=== PATIENT | female | born 1965 | race Hispanic/Latino ===

== ENCOUNTER 2023-05-13 14:15 | Emergency (ER) | payer OTHER, SELFPAY ==
[2023-05-13] VITALS (23 sets, daily range): BP systolic 88–143; BP diastolic 51–95; PULSE 60–77; RESP 13–26; TEMP 36.4–38.7; O2SAT 94–99; BMI 29.2
--- NOTE | 2023-05-13 15:37 | DI.RAD.S_ITS ---
PROCEDURE: XR CHEST 1V INDICATIONS: suspected sepsis TECHNIQUE: One view of the chest was acquired. COMPARISON: None. FINDINGS: Surgical changes and devices: None. Lungs and pleura: Lungs are clear. No pleural effusions or pneumothorax. Mediastinum: Mediastinal contours appear normal. Heart size is normal. Elevated right hemidiaphragm. Bones and chest wall: No suspicious bony lesions. Overlying soft tissues appear unremarkable. IMPRESSION: No acute cardiopulmonary disease process. Dictated by: Valerie Lynne MD, PhD on 05/13/2023 at 16:00 Approved by: Valerie Lynne MD, PhD on 05/13/2023 at 16:00
[2023-05-13] MEDS: SODIUM CHLORIDE 0.9% 1,000 ML 1000 ML IV (15:45)
[2023-05-13 15:49] LABS: INR 1.1 (0.9-1.3); Prothrombin Time 12.2 SECONDS (10.1-12.7)
[2023-05-13 15:58] LABS: Alanine Aminotransferase 30 IU/L (<35); Albumin 4.3 g/dL (3.5-5.0); Albumin Globulin Ratio 1.2 (1.0-2.8); Alkaline Phosphatase 108 U/L (38-126); Aspartate Aminotransferase 34 IU/L (14-36); BUN Creatinine Ratio 9.8 (6-22); Bilirubin Total 1.2 mg/dL (0.2-1.3); Blood Urea Nitrogen 6 mg/dL (7-17); Calcium 8.8 mg/dL (8.4-10.2); Carbon Dioxide 33 mmol/L (22-32); Estimated Glomerular Filt Rate > 60 mL/min (>60); Globulin 3.6 g/dL (1.7-4.1); Glucose 123 mg/dL (70-100); HEMOLYSIS < 15 (0-50); Lipase 101 U/L (23-300); Total Protein 7.9 g/dL (6.3-8.2)
--- NOTE | 2023-05-13 15:59 | PC.NURSE ---
patient states she sees dark but is not able to see anything but does register light sensation. pupil on the right is reactive but pupil on the left is less reactive. both are equal in size. both are cloudy.
[2023-05-13 16:04] LABS: Add Manual Diff / Slide Review NO; Basophils Absolute Auto 0 /uL (0-100); Basophils Percent Auto 0.4 % (0-2); Eosinophils Absolute Auto 100 /uL (0-450); Hemoglobin 12.8 g/dL (12.0-16.0); Lymphocytes Absolute Auto 2200 /uL (1100-4500); Lymphocytes Percent Auto 23.7 % (25-40); Mean Corpuscular HGB Conc 35.5 % (30-36); Mean Corpuscular Volume 90.2 fL (80-100); Monocytes Absolute Auto 900 /uL (0-900); Neutrophils Absolute Auto 6000 /uL (1500-7000); Neutrophils Percent Auto 64.9 % (50-75); Platelet Count 172 X10^3/uL (150-400); Red Blood Cell Count 3.99 X10^6/uL (4.0-5.2); Red Cell Distribution Width 14.5 % (11.6-14.8); White Blood Cell Count 9.2 X10^3/uL (4.5-11.0)
--- NOTE | 2023-05-13 16:04 | DI.CT.S_ITS ---
PROCEDURE: CT HEAD/BRAIN WO CON INDICATIONS: headache, decreased eyesight over days, reports fever TECHNIQUE: Noncontrast 4.5 mm thick angled axial sections acquired from the foramen magnum to the vertex, with coronal and sagittal reformats. For radiation dose reduction, the following was used: automated exposure control, adjustment of mA and/or kV according to patient size. COMPARISON: [facility], CR, XR CHEST 1V, 05/13/2023, 15:48. FINDINGS: Image quality: Excellent. CSF spaces: Basal cisterns are patent. No extra-axial fluid collections. Ventricles are normal in size and shape. Brain: There is a mass seen involving the sella and suprasellar region that measures 2.9 cm craniocaudal by 2.5 cm AP, with a transverse extent of 2.2 cm. There is mass effect upon the optic chiasm and ventral3 forebrain. High density can be seen within the anterior aspect of this mass, as on series 2, image 11 and on series 4, image 17, which may represent intratumoral hemorrhage. No midline shift. Moseley-white matter interface is normal. Skull and face: Calvarium and visualized facial bones are intact, without suspicious lesions. Sinuses: Visualized sinuses and mastoids are clear. IMPRESSION: There is a 2.9 cm mass involving the pituitary fossa. 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 Mild high density can be seen within the mass, which may represent recent hemorrhage. ENT/neurosurgical consultation is recommended. Please consider a dedicated pituitary protocol brain MRI (without and with contrast) for further evaluation (assuming that there is no contraindication). Note: Case discussed by telephone with Dr. Santiago at 4:15 p.m. [place] time on May 13, 2023. Dictated by: Edilson Adler M.D. on 05/13/2023 at 16:12 Approved by: Edilson Adler M.D. on 05/13/2023 at 16:16
[2023-05-13 16:15] LABS: Procalcitonin 0.16 ng/mL (<0.5)
[2023-05-13] MEDS: MORPHINE 4 MG/ML INJ IV (16:15)
[2023-05-13 16:29] LABS: Sodium 116 mmol/L (137-145)
[2023-05-13 16:30] LABS: Chloride 75 mmol/L (98-107); Potassium 2.7 mmol/L (3.4-5.1)
--- NOTE | 2023-05-13 16:33 | ED.HA ---
HPI - Headache <Angelica Santiago DO - Last Filed: 05/14/23 08:52> General Chief Complaint: Headache Stated Complaint: Head pain, Loss of eyesight Time Seen by Provider: 05/13/23 16:04 Source: patient, family and old records reviewed Mode of arrival: Wheelchair Limitations: no limitations History of Present Illness HPI Narrative: This is a 57-year-old female who comes emergency department with complaint of fevers, severe headache starting on 05/10/2023, neck stiffness has pain and increasingly worsening vision. Patient notes that she did have an ophthalmology appointment as she is had slowly worsening vision changes prior to traveling to [place]. She is being followed at the [facility]. She does have a known history cataracts. Patient under tripped started a develop severe headache 4 days ago which has been persistent the develop fevers 3 days ago. Noticed vision has continued to significantly worsened. Denies chest pain or shortness of breath no cold cough or congestive symptoms she has had nausea and vomiting on the and into the but not since then. No diarrhea constipation, no dysuria, urgency or frequency or incontinence. Patient saw physician in a clinic, had labs had COVID swab which was negative, told her that they were suspicious for dengue fever she did have what appears to be CBC shows leukocytes of 10, neutrophils of 510. Hemoglobin was 14 with hematocrit of 52, platelets are 121 at that time lab was not dated. Patient has a little bit of slurred speech, she has been understandable she is not been confused. Family states she is had difficulty with walking they have been assisting her and using a wheelchair and pivoting her for the toilet. They have not noticed any one-sided weakness or lateralizing changes no facial droop. Related Data Allergies Allergy/AdvReac Type Severity Reaction Status Date / Time No Known Drug Allergies Allergy Verified 05/13/23 15:35 Review of Systems <Angelica Santiago DO - Last Filed: 05/14/23 08:52> Review of Systems ROS Unobtainable: All systems reviewed & are unremarkable except as noted in HPI and below Patient History <Angelica Santiago DO - Last Filed: 05/14/23 08:52> Social History Smoking Status: Never smoker Smoking Status: Never smoker alcohol intake frequency: 0-2 drinks per day Substance Use Type: does not use Exam <Angelica Santiago DO - Last Filed: 05/14/23 08:52> Narrative Exam Narrative: GEN: Female, alert and oriented, patient appears to be in moderate distress. HEENT: Atraumatic, pupils are equal round reactive to light, patient right pupil appears to enlarge slightly with light and then narrows, pupils are equal, extraocular movements are intact, nares are clear, TMs are clear with no fluid, there is no conjunctival pallor. Throat is clear without any exudates, erythema, tonsillar enlargement or uvular deviation, no facial droop. HEART: Regular rate and rhythm without murmur, clicks, rubs. No carotid bruits, pulses are equal in upper and lower extremities LUNGS:Lungs clear to auscultation, no wheezes, rales, crackles, chest moves symmetrically ABD:bowel sounds normal, soft, non-tender, no guarding, rebound, rigidity, no masses noted, no hepatosplenomegaly :No CVA tenderness MSCL: Non-tender, no muscle atrophy, muscles strength 5/5 upper and lower extremities, full range of motion NEURO:CN 2-12 intact, sensation normal, reflexes 2/4 upper and lower extremities SKIN: No rash, no erythema no skin changes. Initial Vital Signs Initial Vital Signs: Vital Signs Pulse Rate 72 05/13/23 15:19 Respiratory Rate 26 H 05/13/23 15:19 <Troy Hedrick DO - Last Filed: 05/13/23 23:48> Initial Vital Signs Initial Vital Signs: Vital Signs Pulse Rate 72 05/13/23 15:19 Respiratory Rate 26 H 05/13/23 15:19 Course <Angelica Santiago, DO - Last Filed: 05/14/23 08:52> Orders Ordered: Discontinued Medications Acetaminophen (Acetaminophen 325 Mg Tablet) 650 mg PO NOW ONE Stop: 05/13/23 17:46 Last Admin: 05/13/23 22:46 Dose: Not Given Documented By: ODIN Dexamethasone (Dexamethasone 10 Mg/Ml Vial) 10 mg IV NOW ONE Stop: 05/13/23 16:56 Last Admin: 05/13/23 23:04 Dose: Not Given Documented By: ODIN Hydrocortisone (Hydrocortisone 100 Mg/2 Ml Vial) 100 mg INJ NOW ONE Stop: 05/13/23 18:44 Last Admin: 05/13/23 19:29 Dose: 100 mg Documented By: PADMA Hydrocortisone (Hydrocortisone 100 Mg/2 Ml Vial) 100 mg INJ Q6H [facility] Sodium Chloride (Normal Saline 0.9%) 1,000 mls @ 1,000 mls/hr IV BOLUS ONE Stop: 05/13/23 16:36 Last Infusion: 05/13/23 20:06 Dose: 0 mls/hr Documented By: Admin: 05/13/23 15:45 Dose: 1,000 mls/hr Documented By: PADMA Sodium Chloride (Normal Saline 0.9%) 1,000 mls @ 1,000 mls/hr IV BOLUS ONE Stop: 05/13/23 17:05 Last Admin: 05/13/23 18:57 Dose: Not Given Documented By: PADMA POTASSIUM CHLORIDE IN WATER (Potassium Cl 10 Meq/100 Ml Cassi) 10 meq in 100 mls @ 100 mls/hr IV Q1H ELIZA Stop: 05/13/23 20:44 Last Infusion: 05/13/23 22:57 Dose: 0 mls/hr Documented By: Admin: 05/13/23 21:18 Dose: 100 mls/hr Documented By: Infusion: 05/13/23 21:01 Dose: 100 mls/hr Documented By: Admin: 05/13/23 20:01 Dose: 100 mls/hr Documented By: Infusion: 05/13/23 20:00 Dose: 100 mls/hr Documented By: Admin: 05/13/23 19:00 Dose: 100 mls/hr Documented By: Infusion: 05/13/23 17:43 Dose: 100 mls/hr Documented By: Admin: 05/13/23 16:43 Dose: 100 mls/hr Documented By: PADMA Ceftriaxone Sodium 2,000 mg/ (Sodium Chloride) 100 mls @ 200 mls/hr IV NOW ONE Stop: 05/13/23 16:56 Last Infusion: 05/13/23 20:35 Dose: 0 mls/hr Documented By: Admin: 05/13/23 19:05 Dose: 200 mls/hr Documented By: PADMA Vancomycin HCl (Vancomycin) 1,250 mg in 250 mls @ 250 mls/hr IV NOW ONE Stop: 05/13/23 17:56 Last Infusion: 05/14/23 00:00 Dose: 0 mls/hr Documented By: Admin: 05/13/23 22:57 Dose: 250 mls/hr Documented By: ODIN Acyclovir 720 mg/ Dextrose 250 mls @ 250 mls/hr IV NOW ONE Stop: 05/13/23 16:56 Last Admin: 05/13/23 22:45 Dose: Not Given Documented By: ODIN Acetaminophen (Ofirmev) 1,000 mg in 100 mls @ 400 mls/hr IV NOW ONE Stop: 05/13/23 17:20 Last Infusion: 05/13/23 21:03 Dose: 0 mls/hr Documented By: Admin: 05/13/23 19:14 Dose: 400 mls/hr Documented By: PADMA Sterile Water 250 ml/ Sodium (Chloride) 750 mls @ 75 mls/hr IV CONT ELIZA Last Infusion: 05/14/23 00:25 Dose: 50 mls/hr Documented By: Infusion: 05/13/23 19:45 Dose: 50 mls/hr Documented By: Admin: 05/13/23 19:33 Dose: 75 mls/hr Documented By: PADMA Morphine Sulfate (Morphine 4 Mg/Ml Inj) 4 mg IV NOW ONE Stop: 05/13/23 16:06 Last Admin: 05/13/23 16:15 Dose: 4 mg Documented By: PADMA Ondansetron HCl (Ondansetron 4 Mg/2 Ml Inj) 4 mg IV NOW PRN PRN Reason: Nausea And Vomiting Ondansetron HCl (Ondansetron 4 Mg Odt) 4 mg SL NOW PRN PRN Reason: Nausea And Vomiting Vital Signs Vital signs: Vital Signs - 8 hr 05/13/23 16:00 05/13/23 16:00 05/13/23 16:16 Temperature 100.1 F H Pulse Rate 68 77 Respiratory Rate 19 25 H Blood Pressure 136/78 Pulse Oximetry 97 99 05/13/23 16:16 05/13/23 16:30 05/13/23 17:00 Temperature Pulse Rate 71 74 Respiratory Rate 21 20 Blood Pressure 125/74 Pulse Oximetry 96 97 05/13/23 17:30 05/13/23 17:41 05/13/23 17:41 Temperature Pulse Rate 73 77 Respiratory Rate 18 21 Blood Pressure 132/74 Pulse Oximetry 95 95 05/13/23 18:00 05/13/23 18:00 05/13/23 19:10 Temperature Pulse Rate 75 72 Respiratory Rate 22 Blood Pressure 131/69 Pulse Oximetry 94 95 05/13/23 19:12 05/13/23 19:12 05/13/23 19:30 Temperature Pulse Rate 77 Respiratory Rate Blood Pressure 139/76 129/95 H Pulse Oximetry 95 05/13/23 19:30 05/13/23 20:00 05/13/23 20:00 Temperature Pulse Rate 71 71 Respiratory Rate 14 16 Blood Pressure 118/64 Pulse Oximetry 96 96 05/13/23 20:30 05/13/23 20:30 05/13/23 21:00 Temperature Pulse Rate 72 Respiratory Rate 19 Blood Pressure 125/65 107/58 L Pulse Oximetry 96 05/13/23 21:00 05/13/23 21:30 05/13/23 21:30 Temperature Pulse Rate 72 70 Respiratory Rate 19 19 Blood Pressure 100/52 L Pulse Oximetry 94 94 05/13/23 22:00 05/13/23 22:00 05/13/23 22:30 Temperature Pulse Rate 65 Respiratory Rate 18 Blood Pressure 97/52 L 98/55 L Pulse Oximetry 94 05/13/23 22:30 05/13/23 23:00 05/13/23 23:00 Temperature 98.4 F Pulse Rate 63 61 Respiratory Rate 16 14 Blood Pressure 91/53 L Pulse Oximetry 95 97 05/13/23 23:30 05/13/23 23:30 Temperature 97.5 F L Pulse Rate 60 Respiratory Rate 13 Blood Pressure 88/51 L Pulse Oximetry 96 <Troy Hedrick, - Last Filed: 05/13/23 23:48> Orders Ordered: Discontinued Medications Acetaminophen (Acetaminophen 325 Mg Tablet) 650 mg PO NOW ONE Stop: 05/13/23 17:46 Last Admin: 05/13/23 22:46 Dose: Not Given Documented By: ODIN Dexamethasone (Dexamethasone 10 Mg/Ml Vial) 10 mg IV NOW ONE Stop: 05/13/23 16:56 Last Admin: 05/13/23 23:04 Dose: Not Given Documented By: ODIN Hydrocortisone (Hydrocortisone 100 Mg/2 Ml Vial) 100 mg INJ NOW ONE Stop: 05/13/23 18:44 Last Admin: 05/13/23 19:29 Dose: 100 mg Documented By: PADMA Hydrocortisone (Hydrocortisone 100 Mg/2 Ml Vial) 100 mg INJ Q6H ELIZA Sodium Chloride (Normal Saline 0.9%) 1,000 mls @ 1,000 mls/hr IV BOLUS ONE Stop: 05/13/23 16:36 Last Infusion: 05/13/23 20:06 Dose: 0 mls/hr Documented By: Admin: 05/13/23 15:45 Dose: 1,000 mls/hr Documented By: PADMA Sodium Chloride (Normal Saline 0.9%) 1,000 mls @ 1,000 mls/hr IV BOLUS ONE Stop: 05/13/23 17:05 Last Admin: 05/13/23 18:57 Dose: Not Given Documented By: PADMA POTASSIUM CHLORIDE IN WATER (Potassium Cl 10 Meq/100 Ml Cassi) 10 meq in 100 mls @ 100 mls/hr IV Q1H ELIZA Stop: 05/13/23 20:44 Last Infusion: 05/13/23 22:57 Dose: 0 mls/hr Documented By: Admin: 05/13/23 21:18 Dose: 100 mls/hr Documented By: Infusion: 05/13/23 21:01 Dose: 100 mls/hr Documented By: Admin: 05/13/23 20:01 Dose: 100 mls/hr Documented By: Infusion: 05/13/23 20:00 Dose: 100 mls/hr Documented By: Admin: 05/13/23 19:00 Dose: 100 mls/hr Documented By: Infusion: 05/13/23 17:43 Dose: 100 mls/hr Documented By: Admin: 05/13/23 16:43 Dose: 100 mls/hr Documented By: PADMA Ceftriaxone Sodium 2,000 mg/ (Sodium Chloride) 100 mls @ 200 mls/hr IV NOW ONE Stop: 05/13/23 16:56 Last Infusion: 05/13/23 20:35 Dose: 0 mls/hr Documented By: Admin: 05/13/23 19:05 Dose: 200 mls/hr Documented By: PADMA Vancomycin HCl (Vancomycin) 1,250 mg in 250 mls @ 250 mls/hr IV NOW ONE Stop: 05/13/23 17:56 Last Infusion: 05/14/23 00:00 Dose: 0 mls/hr Documented By: Admin: 05/13/23 22:57 Dose: 250 mls/hr Documented By: ODIN Acyclovir 720 mg/ Dextrose 250 mls @ 250 mls/hr IV NOW ONE Stop: 05/13/23 16:56 Last Admin: 05/13/23 22:45 Dose: Not Given Documented By: ODIN Acetaminophen (Ofirmev) 1,000 mg in 100 mls @ 400 mls/hr IV NOW ONE Stop: 05/13/23 17:20 Last Infusion: 05/13/23 21:03 Dose: 0 mls/hr Documented By: Admin: 05/13/23 19:14 Dose: 400 mls/hr Documented By: PADMA Sterile Water 250 ml/ Sodium (Chloride) 750 mls @ 75 mls/hr IV CONT ELIZA Last Infusion: 05/14/23 00:25 Dose: 50 mls/hr Documented By: Infusion: 05/13/23 19:45 Dose: 50 mls/hr Documented By: Admin: 05/13/23 19:33 Dose: 75 mls/hr Documented By: PADMA Morphine Sulfate (Morphine 4 Mg/Ml Inj) 4 mg IV NOW ONE Stop: 05/13/23 16:06 Last Admin: 05/13/23 16:15 Dose: 4 mg Documented By: PADMA Ondansetron HCl (Ondansetron 4 Mg/2 Ml Inj) 4 mg IV NOW PRN PRN Reason: Nausea And Vomiting Ondansetron HCl (Ondansetron 4 Mg Odt) 4 mg SL NOW PRN PRN Reason: Nausea And Vomiting Vital Signs Vital signs: Vital Signs - 8 hr 05/13/23 16:00 05/13/23 16:00 05/13/23 16:16 Temperature 100.1 F H Pulse Rate 68 77 Respiratory Rate 19 25 H Blood Pressure 136/78 Pulse Oximetry 97 99 05/13/23 16:16 05/13/23 16:30 05/13/23 17:00 Temperature Pulse Rate 71 74 Respiratory Rate 21 20 Blood Pressure 125/74 Pulse Oximetry 96 97 05/13/23 17:30 05/13/23 17:41 05/13/23 17:41 Temperature Pulse Rate 73 77 Respiratory Rate 18 21 Blood Pressure 132/74 Pulse Oximetry 95 95 05/13/23 18:00 05/13/23 18:00 05/13/23 19:10 Temperature Pulse Rate 75 72 Respiratory Rate 22 Blood Pressure 131/69 Pulse Oximetry 94 95 05/13/23 19:12 05/13/23 19:12 05/13/23 19:30 Temperature Pulse Rate 77 Respiratory Rate Blood Pressure 139/76 129/95 H Pulse Oximetry 95 05/13/23 19:30 05/13/23 20:00 05/13/23 20:00 Temperature Pulse Rate 71 71 Respiratory Rate 14 16 Blood Pressure 118/64 Pulse Oximetry 96 96 05/13/23 20:30 05/13/23 20:30 05/13/23 21:00 Temperature Pulse Rate 72 Respiratory Rate 19 Blood Pressure 125/65 107/58 L Pulse Oximetry 96 05/13/23 21:00 05/13/23 21:30 05/13/23 21:30 Temperature Pulse Rate 72 70 Respiratory Rate 19 19 Blood Pressure 100/52 L Pulse Oximetry 94 94 05/13/23 22:00 05/13/23 22:00 05/13/23 22:30 Temperature Pulse Rate 65 Respiratory Rate 18 Blood Pressure 97/52 L 98/55 L Pulse Oximetry 94 05/13/23 22:30 05/13/23 23:00 05/13/23 23:00 Temperature 98.4 F Pulse Rate 63 61 Respiratory Rate 16 14 Blood Pressure 91/53 L Pulse Oximetry 95 97 05/13/23 23:30 05/13/23 23:30 Temperature 97.5 F L Pulse Rate 60 Respiratory Rate 13 Blood Pressure 88/51 L Pulse Oximetry 96 MDM - Headache <Angelica Santiago, DO - Last Filed: 05/14/23 08:52> Lab Data 05/13/23 15:25 05/13/23 21:29 Labs: Lab Results 05/13/23 05/13/23 05/13/23 Range/Units 15:25 15:25 15:25 WBC 9.2 (4.5-11.0) X10^3/uL RBC 3.99 L (4.0-5.2) X10^6/uL Hgb 12.8 (12.0-16.0) g/dL Hct 36.0 (36-46) % MCV 90.2 (80-100) fL MCH 32.0 (26-34) PG MCHC 35.5 (30-36) % RDW 14.5 (11.6-14.8) % Plt Count 172 (150-400) X10^3/uL Neut % (Auto) 64.9 (50-75) % Lymph % (Auto) 23.7 L (25-40) % [place] % (Auto) 10.0 (3-14) % Eos % (Auto) 1.0 L (2-4) % Baso % (Auto) 0.4 (0-2) % Neut # (Auto) 6000 (9931-0977) /uL Lymph # (Auto) 2200 (8315-0227) /uL [place] # (Auto) 900 (0-900) /uL Eos # (Auto) 100 (0-450) /uL Baso # (Auto) 0 (0-100) /uL PT 12.2 (10.1-12.7) SECONDS INR 1.1 (0.9-1.3) APTT 27 (26-36) SECONDS Sodium 116 L* (137-145) mmol/L Potassium 2.7 L* (3.4-5.1) mmol/L Chloride 75 L* (98-107) mmol/L Carbon Dioxide 33 H (22-32) mmol/L BUN 6 L (7-17) mg/dL Creatinine 0.61 (0.52-1.04) mg/dL Estimated GFR > 60 (>60) mL/min BUN/Creatinine Ratio 9.8 (6-22) Glucose 123 H (70-100) mg/dL Lactate (0.7-2.1) mmol/L Calcium 8.8 (8.4-10.2) mg/dL Total Bilirubin 1.2 (0.2-1.3) mg/dL AST 34 (14-36) IU/L ALT 30 (<35) IU/L Alkaline Phosphatase 108 (38-126) U/L Total Protein 7.9 (6.3-8.2) g/dL Albumin 4.3 (3.5-5.0) g/dL Globulin 3.6 (1.7-4.1) g/dL Albumin/Globulin Ratio 1.2 (1.0-2.8) Lipase 101 (23-300) U/L Procalcitonin 0.16 (<0.5) ng/mL Urine RBC (0-5/HPF) Urine WBC (0-5/HPF) Ur Squamous Epith Cells (0-5/HPF) Urine Bacteria (None) Ur Culture Indicated? 05/13/23 05/13/23 05/13/23 Range/Units 15:25 17:23 21:29 WBC (4.5-11.0) X10^3/uL RBC (4.0-5.2) X10^6/uL Hgb (12.0-16.0) g/dL Hct (36-46) % MCV (80-100) fL MCH (26-34) PG MCHC (30-36) % RDW (11.6-14.8) % Plt Count (150-400) X10^3/uL Neut % (Auto) (50-75) % Lymph % (Auto) (25-40) % [place] % (Auto) (3-14) % Eos % (Auto) (2-4) % Baso % (Auto) (0-2) % Neut # (Auto) (6332-7683) /uL Lymph # (Auto) (2609-1032) /uL [place] # (Auto) (0-900) /uL Eos # (Auto) (0-450) /uL Baso # (Auto) (0-100) /uL PT (10.1-12.7) SECONDS INR (0.9-1.3) APTT (26-36) SECONDS Sodium 117 L* 117 L* (137-145) mmol/L Potassium 3.0 L 3.1 L (3.4-5.1) mmol/L Chloride 82 L 83 L (98-107) mmol/L Carbon Dioxide 29 27 (22-32) mmol/L BUN 5 L 5 L (7-17) mg/dL Creatinine 0.49 L 0.55 (0.52-1.04) mg/dL Estimated GFR > 60 > 60 (>60) mL/min BUN/Creatinine Ratio 10.2 9.1 (6-22) Glucose 113 H 142 H (70-100) mg/dL Lactate 1.0 (0.7-2.1) mmol/L Calcium 7.8 L 7.6 L (8.4-10.2) mg/dL Total Bilirubin (0.2-1.3) mg/dL AST (14-36) IU/L ALT (<35) IU/L Alkaline Phosphatase (38-126) U/L Total Protein (6.3-8.2) g/dL Albumin (3.5-5.0) g/dL Globulin (1.7-4.1) g/dL Albumin/Globulin Ratio (1.0-2.8) Lipase (23-300) U/L Procalcitonin (<0.5) ng/mL Urine RBC (0-5/HPF) Urine WBC (0-5/HPF) Ur Squamous Epith Cells (0-5/HPF) Urine Bacteria (None) Ur Culture Indicated? 05/13/23 Range/Units 23:14 WBC (4.5-11.0) X10^3/uL RBC (4.0-5.2) X10^6/uL Hgb (12.0-16.0) g/dL Hct (36-46) % MCV (80-100) fL MCH (26-34) PG MCHC (30-36) % RDW (11.6-14.8) % Plt Count (150-400) X10^3/uL Neut % (Auto) (50-75) % Lymph % (Auto) (25-40) % [place] % (Auto) (3-14) % Eos % (Auto) (2-4) % Baso % (Auto) (0-2) % Neut # (Auto) (7897-1607) /uL Lymph # (Auto) (8213-0225) /uL [place] # (Auto) (0-900) /uL Eos # (Auto) (0-450) /uL Baso # (Auto) (0-100) /uL PT (10.1-12.7) SECONDS INR (0.9-1.3) APTT (26-36) SECONDS Sodium (137-145) mmol/L Potassium (3.4-5.1) mmol/L Chloride (98-107) mmol/L Carbon Dioxide (22-32) mmol/L BUN (7-17) mg/dL Creatinine (0.52-1.04) mg/dL Estimated GFR (>60) mL/min BUN/Creatinine Ratio (6-22) Glucose (70-100) mg/dL Lactate (0.7-2.1) mmol/L Calcium (8.4-10.2) mg/dL Total Bilirubin (0.2-1.3) mg/dL AST (14-36) IU/L ALT (<35) IU/L Alkaline Phosphatase (38-126) U/L Total Protein (6.3-8.2) g/dL Albumin (3.5-5.0) g/dL Globulin (1.7-4.1) g/dL Albumin/Globulin Ratio (1.0-2.8) Lipase (23-300) U/L Procalcitonin (<0.5) ng/mL Urine RBC None seen (0-5/HPF) Urine WBC None seen (0-5/HPF) Ur Squamous Epith Cells None seen (0-5/HPF) Urine Bacteria None seen (None) Ur Culture Indicated? Cult not indicated Urine Dip Bedside Urine Glucose Negative Bedside Urine Bilirubin - Negative Bedside Urine Ketone +/- 5 Urine Specific Marissa 1.005 Bedside Urine Occult Blood - Negative Bedside Urine pH 6.5 Bedside Urine Protein - Negative Bedside Urine Urobilinogen - Negative Bedside Urine Nitrite - Negative Bedside Urine Leukocytes - Negative Esterase Imaging Data CT scan - head: Radiologist's Impression: Close Head CT (Signed) Edilson Adler - 05/13/23 Chest X-Ray (Signed) Valerie Lynne - 05/13/23 Launch?[place] [address] CT Scan Report Signed Patient: Alayna Allen MR#: [id number] : 1965 Acct:[id number] Age/Sex: 57 / F Date of Service: 05/13/23 Loc: ED Accession Number: [id number] ?? Procedure: CT head/brain wo con Ordering Provider: Angelica Santiago D.O. PROCEDURE:? CT HEAD/BRAIN WO CON ? INDICATIONS:? headache, decreased eyesight over days, reports fever ? TECHNIQUE:? Noncontrast 4.5 mm thick angled axial sections acquired from the foramen magnum to the vertex, with coronal and sagittal reformats.? For radiation dose reduction, the following was used:? automated exposure control, adjustment of mA and/or kV according to patient size.? ? COMPARISON:? [facility], CR, XR CHEST 1V, 05/13/2023, 15:48. ? FINDINGS:? Image quality:? Excellent.? ? CSF spaces:? Basal cisterns are patent.? No extra-axial fluid collections.? Ventricles are normal in size and shape.? ? Brain:? There is a mass seen involving the sella and suprasellar region that measures 2.9 cm craniocaudal by 2.5 cm AP, with a transverse extent of 2.2 cm.? There is mass effect upon the optic chiasm and ventral3 forebrain.? High density can be seen within the anterior aspect of this mass, as on series 2, image 11 and on series 4, image 17, which may represent intratumoral hemorrhage.? ? No midline shift.? Moseley-white matter interface is normal.? ? Skull and face:? Calvarium and visualized facial bones are intact, without suspicious lesions.? ? Sinuses:? Visualized sinuses and mastoids are clear.? IMPRESSION:? There is a 2.9 cm mass involving the pituitary fossa.? 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 ? Mild high density can be seen within the mass, which may represent recent hemorrhage. ? ENT/neurosurgical consultation is recommended. ? Please consider a dedicated pituitary protocol brain MRI (without and with contrast) for further evaluation (assuming that there is no contraindication).? ? Note: Case discussed by telephone with Dr. Santiago at 4:15 p.m. [place] time on May 13, 2023. ? Dictated by: Edilson Adler M.D. on 05/13/2023 at 16:12 ? ? Approved by: Edilson Adler M.D. on 05/13/2023 at 16:16?? MRI brain: Radiologist's Impression: Alayna Allen Y??57??F??1965 ? Allergy/Adv: No Known Drug Allergies (More??) Close Brain MRI (Signed) Edilson Adler - 05/13/[address] (Signed) Edilson Adler - 05/13/23 Chest X-Ray (Signed) Valerie Lynne - 05/13/23 Launch?Image [address] [address] Magnetic Resonance Report Signed Patient: Alayna Allen MR#: [id number] : 1965 Acct:[id number] Age/Sex: 57 / F Date of Service: 05/13/23 Loc: ED Accession Number: [id number] ?? Procedure: MR brain (pituitary) wwo con Ordering Provider: Angelica Santiago D.O. PROCEDURE:? MR BRAIN (PITUITARY) WWO CON ? INDICATIONS:? fever, handy, vision loss, vomiting, low sodium ? TECHNIQUE:? Noncontrast sagittal and axial FLAIR, axial gradient echo, axial diffusion and ADC through the brain.? Thin-slice sagittal and coronal T1 spin echo, coronal T2 fast spin echo through the pituitary.? After the administration contrast, optional dynamic coronal T1 spin echo, thin-slice coronal and sagittal T1 spin echo images through the pituitary fossa; axial and coronal and sagittal T1 spin echo with fat saturation through the brain. ? ? COMPARISON:? [facility], CT, CT HEAD/BRAIN WO CON, 05/13/2023, 16:13. ? FINDINGS:? Image quality:? Excellent.? ? Pituitary Gland:? A large pituitary mass is seen, measuring 3 cm craniocaudal by 2.4 cm AP, with a transverse extent of 2.2 cm.? There is heterogeneity seen of this mass, particularly superiorly, with cystic elements as well as hemorrhage, with hemosiderin deposition and increased signal on precontrast T1 weighted imaging.? There is mild hemorrhage seen, particularly along its margins and along the superior portion of the mass.? This mass demonstrates a bilobed configuration, with a waist seen along its midportion. ? Mass effect can be seen upon the optic chiasm, which is flattened and superiorly elevated.? There is also mass effect upon the ventral forebrain. ? CSF Spaces:? Ventricles are normal in size and shape.? Basal cisterns are patent.? No extra-axial fluid collections.? ? Brain:? No intracranial bleeds or mass effects.? No abnormal intracranial enhancement.? Moseley-white matter interface is intact.? Diffusion weighted images demonstrate no acute ischemic insults.? Brainstem is normal.? Normal intravascular flow voids are present.? ? Skull and face:? Calvarial marrow is normal in signal.? Orbits appear normal.? ? Sinuses:? Sinuses and mastoids are clear.? ? ? IMPRESSION:? There is a 3 cm pituitary mass seen, with heterogeneity and internal hemorrhage.? 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 ? Prominent mass effect is seen upon the optic chiasm, which is flattened and? deviated superiorly. ? Urgent ENT/neurosurgical consultation is recommended. ? Note: Case discussed by telephone with Dr. Santiago at 6:35 p.m. [place] time on May 13, 2023. ? ? ? Dictated by: Edilson Adler M.D. on 05/13/2023 at 18:28 ? ? Approved by: Edilson Adler M.D. on 05/13/2023 at 18:36?? ECG Data Attestation: I personally reviewed and interpreted this ECG as follows: Interpretation: Sinus rhythm rate of 67 CO 160 QRS of [address] QTC [address] No acute [address] elevation depression noted. MDM Narrative Medical decision making narrative: This is a 57-year-old female who presents with complaint of fevers, headaches, vision changes generalized weakness and vomiting. Patient describes vision loss where she has some light but can not see fingers. This sounds like this was actually present before she had the fevers, headaches or other changes but has significantly worsened recently. Patient's was traveling in [place]. Of poorly had COVID swab, discussed they had recommended hospitalization but patient's family had returned to the states. This has been going over the past 4 days. She is febrile, no white count no leukocytosis, no predominance of neutrophils, patient's procalcitonin is negative, coags are negative, patient has significant hyponatremia 116 with a sodium of 2.7 and chloride of 75 CO2 of 33 with a BUN of 6 creatinine 0.6. Glucose is 123 LFTs, lactate and pro calor all negative. 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 Discussed with patient and family concern higher this time for mass, fever might be secondary to this we will still cover for infection but my suspicion is much lower. Held off on lumbar puncture until consultation with Neurosurgery. Patient went to MR. Neurosurgery [facility]: Spoke with Dr. Daigle, neurosurgery for accepts for transfer. He would like patient transferred as quickly as possible. Potential for emergent surgery this evening as per Solu-Cortef 100 mg stress dose, sodium replacement he requests 2% not 3% saline at 75-100 mL/hour. Coordinator is reviewing with the administration regarding [facility] V2 bed or if there is acute bed available quickly. Spoke with Dr. Haskins, SICU at [facility] notes patient has been accepted for transfer. Agrees with plan for Solu-Cortef 100 mg stress dose q.6 hours, agrees with request for 2% saline which are pharmacy is able to provide she would recommend 50 mL/hour for slow correction. Discussed MR is pending but there suspected bleed and they felt fevers are likely secondary to this. Patient did receive initial doses of antibiotics she did receive 1 L bolus prior to sodium resulting. Patient has been somewhat sleepy but arouses easily to verbal stimuli. Likely secondary to hyponatremia as well as recent narcotics. Discussed with patient and family we will continue to watch neurologic status closely she could require intubation. MR report was called to myself by Dr. 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 Patient signed out to Dr. Hedrick while awaiting bed assignment and transport. Plan for 2% saline at 50 mL/hour, Solu-Cortef 100 mg q.6 hours with BNP is q.4 hours, Garcia catheter for strict I's and O's while awaiting assignment. <Troy Hedrick, DO - Last Filed: 05/13/23 23:48> Lab Data Labs: Lab Results 05/13/23 05/13/23 05/13/23 Range/Units 15:25 15:25 15:25 WBC 9.2 (4.5-11.0) X10^3/uL RBC 3.99 L (4.0-5.2) X10^6/uL Hgb 12.8 (12.0-16.0) g/dL Hct 36.0 (36-46) % MCV 90.2 (80-100) fL MCH 32.0 (26-34) PG MCHC 35.5 (30-36) % RDW 14.5 (11.6-14.8) % Plt Count 172 (150-400) X10^3/uL Neut % (Auto) 64.9 (50-75) % Lymph % (Auto) 23.7 L (25-40) % [place] % (Auto) 10.0 (3-14) % Eos % (Auto) 1.0 L (2-4) % Baso % (Auto) 0.4 (0-2) % Neut # (Auto) 6000 (6292-3832) /uL Lymph # (Auto) 2200 (9552-8291) /uL [place] # (Auto) 900 (0-900) /uL Eos # (Auto) 100 (0-450) /uL Baso # (Auto) 0 (0-100) /uL PT 12.2 (10.1-12.7) SECONDS INR 1.1 (0.9-1.3) APTT 27 (26-36) SECONDS Sodium 116 L* (137-145) mmol/L Potassium 2.7 L* (3.4-5.1) mmol/L Chloride 75 L* (98-107) mmol/L Carbon Dioxide 33 H (22-32) mmol/L BUN 6 L (7-17) mg/dL Creatinine 0.61 (0.52-1.04) mg/dL Estimated GFR > 60 (>60) mL/min BUN/Creatinine Ratio 9.8 (6-22) Glucose 123 H (70-100) mg/dL Lactate (0.7-2.1) mmol/L Calcium 8.8 (8.4-10.2) mg/dL Total Bilirubin 1.2 (0.2-1.3) mg/dL AST 34 (14-36) IU/L ALT 30 (<35) IU/L Alkaline Phosphatase 108 (38-126) U/L Total Protein 7.9 (6.3-8.2) g/dL Albumin 4.3 (3.5-5.0) g/dL Globulin 3.6 (1.7-4.1) g/dL Albumin/Globulin Ratio 1.2 (1.0-2.8) Lipase 101 (23-300) U/L Procalcitonin 0.16 (<0.5) ng/mL Urine RBC (0-5/HPF) Urine WBC (0-5/HPF) Ur Squamous Epith Cells (0-5/HPF) Urine Bacteria (None) Ur Culture Indicated? 05/13/23 05/13/23 05/13/23 Range/Units 15:25 17:23 21:29 WBC (4.5-11.0) X10^3/uL RBC (4.0-5.2) X10^6/uL Hgb (12.0-16.0) g/dL Hct (36-46) % MCV (80-100) fL MCH (26-34) PG MCHC (30-36) % RDW (11.6-14.8) % Plt Count (150-400) X10^3/uL Neut % (Auto) (50-75) % Lymph % (Auto) (25-40) % [place] % (Auto) (3-14) % Eos % (Auto) (2-4) % Baso % (Auto) (0-2) % Neut # (Auto) (8810-5894) /uL Lymph # (Auto) (2459-9443) /uL [place] # (Auto) (0-900) /uL Eos # (Auto) (0-450) /uL Baso # (Auto) (0-100) /uL PT (10.1-12.7) SECONDS INR (0.9-1.3) APTT (26-36) SECONDS Sodium 117 L* 117 L* (137-145) mmol/L Potassium 3.0 L 3.1 L (3.4-5.1) mmol/L Chloride 82 L 83 L (98-107) mmol/L Carbon Dioxide 29 27 (22-32) mmol/L BUN 5 L 5 L (7-17) mg/dL Creatinine 0.49 L 0.55 (0.52-1.04) mg/dL Estimated GFR > 60 > 60 (>60) mL/min BUN/Creatinine Ratio 10.2 9.1 (6-22) Glucose 113 H 142 H (70-100) mg/dL Lactate 1.0 (0.7-2.1) mmol/L Calcium 7.8 L 7.6 L (8.4-10.2) mg/dL Total Bilirubin (0.2-1.3) mg/dL AST (14-36) IU/L ALT (<35) IU/L Alkaline Phosphatase (38-126) U/L Total Protein (6.3-8.2) g/dL Albumin (3.5-5.0) g/dL Globulin (1.7-4.1) g/dL Albumin/Globulin Ratio (1.0-2.8) Lipase (23-300) U/L Procalcitonin (<0.5) ng/mL Urine RBC (0-5/HPF) Urine WBC (0-5/HPF) Ur Squamous Epith Cells (0-5/HPF) Urine Bacteria (None) Ur Culture Indicated? 05/13/23 Range/Units 23:14 WBC (4.5-11.0) X10^3/uL RBC (4.0-5.2) X10^6/uL Hgb (12.0-16.0) g/dL Hct (36-46) % MCV (80-100) fL MCH (26-34) PG MCHC (30-36) % RDW (11.6-14.8) % Plt Count (150-400) X10^3/uL Neut % (Auto) (50-75) % Lymph % (Auto) (25-40) % [place] % (Auto) (3-14) % Eos % (Auto) (2-4) % Baso % (Auto) (0-2) % Neut # (Auto) (2404-4249) /uL Lymph # (Auto) (0543-7728) /uL [place] # (Auto) (0-900) /uL Eos # (Auto) (0-450) /uL Baso # (Auto) (0-100) /uL PT (10.1-12.7) SECONDS INR (0.9-1.3) APTT (26-36) SECONDS Sodium (137-145) mmol/L Potassium (3.4-5.1) mmol/L Chloride (98-107) mmol/L Carbon Dioxide (22-32) mmol/L BUN (7-17) mg/dL Creatinine (0.52-1.04) mg/dL Estimated GFR (>60) mL/min BUN/Creatinine Ratio (6-22) Glucose (70-100) mg/dL Lactate (0.7-2.1) mmol/L Calcium (8.4-10.2) mg/dL Total Bilirubin (0.2-1.3) mg/dL AST (14-36) IU/L ALT (<35) IU/L Alkaline Phosphatase (38-126) U/L Total Protein (6.3-8.2) g/dL Albumin (3.5-5.0) g/dL Globulin (1.7-4.1) g/dL Albumin/Globulin Ratio (1.0-2.8) Lipase (23-300) U/L Procalcitonin (<0.5) ng/mL Urine RBC None seen (0-5/HPF) Urine WBC None seen (0-5/HPF) Ur Squamous Epith Cells None seen (0-5/HPF) Urine Bacteria None seen (None) Ur Culture Indicated? Cult not indicated Urine Dip Bedside Urine Glucose Negative Bedside Urine Bilirubin - Negative Bedside Urine Ketone +/- 5 Urine Specific Marissa 1.005 Bedside Urine Occult Blood - Negative Bedside Urine pH 6.5 Bedside Urine Protein - Negative Bedside Urine Urobilinogen - Negative Bedside Urine Nitrite - Negative Bedside Urine Leukocytes - Negative Esterase MDM Narrative Medical decision making narrative: This is a 57-year-old female who presents with complaint of fevers, headaches, vision changes generalized weakness and vomiting. Patient describes vision loss where she has some light but can not see fingers. This sounds like this was actually present before she had the fevers, headaches or other changes but has significantly worsened recently. Patient's was traveling in [place]. Of poorly had COVID swab, discussed they had recommended hospitalization but patient's [place] had [place] the [place]. This has been going over the past 4 days. She is febrile, no white count no leukocytosis, no predominance of neutrophils, patient's procalcitonin is negative, coags are negative, patient has significant hyponatremia 116 with a sodium of 2.7 and chloride of 75 CO2 of 33 with a BUN of 6 creatinine 0.6. Glucose is 123 LFTs, lactate and pro calor all negative. 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 Discussed with patient and family concern higher this time for mass, fever might be secondary to this we will still cover for infection but my suspicion is much lower. Held off on lumbar puncture until consultation with Neurosurgery. Patient went to Neurosurgery [facility]: Spoke with Dr. Daigle, neurosurgery for accepts for transfer. He would like patient transferred as quickly as possible. Potential for emergent surgery this evening as per Solu-Cortef 100 mg stress dose, sodium replacement he requests 2% not 3% saline at 75-100 mL/hour. Coordinator is reviewing with the administration regarding [facility] V2 bed or if there is acute bed available quickly. Spoke with Dr. Haskins, SICU at [facility]. notes patient has been accepted for transfer. Agrees with plan for Solu-Cortef 100 mg stress dose q.6 hours, agrees with request for 2% saline which are pharmacy is able to provide she would recommend 50 mL/hour for slow correction. Discussed MR is pending but there suspected bleed and they felt fevers are likely secondary to this. Patient did receive initial doses of antibiotics she did receive 1 L bolus prior to sodium resulting. Patient has been somewhat sleepy but arouses easily to verbal stimuli. Likely secondary to hyponatremia as well as recent narcotics. Discussed with patient and family we will continue to watch neurologic status closely she could require intubation. MR report was called to myself by Dr. 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 Patient signed out to Dr. Hedrick while awaiting bed assignment and transport. Plan for 2% saline at 50 mL/hour, Solu-Cortef 100 mg q.6 hours with BNP is q.4 hours, Garcia catheter for strict I's and O's while awaiting assignment. Dr Hedrick: Received turned over. Reviewed patient's history and physical exam and workup. Patient continues to be stable. His receiving the 2% normal saline. Has completed all the antibiotics ordered by Dr. Santiago although concern for infectious etiology is low. Patient is stable for transport. Critical Care Time <Angelica Santiago, DO - Last Filed: 05/14/23 08:52> Critical Care Time Critical Care Time: Yes Total Critical Care Time: 40 Attestation: The high probability of a clinically significant, sudden or life threatening deterioration of the [neuro] system(s) required my full and direct attention, intervention and personal management. The aggregate critical care time was [] minutes. This time is in addition to time spent performing reported procedures but includes the following: [x] Data Review and interpretation [x] Patient assessment and monitoring of vital signs [x] Documentation [x] Medication orders and management Discharge Plan Departure Patient Disposition: Xfer Acute Care Hospital Clinical Impression: Mass of pituitary, Loss of vision, Fever Referrals: Radha Garcia FNP-C [Primary Care Provider] -
[2023-05-13 16:38] LABS: PTT Partial Thromboplastin Tim 27 SECONDS (26-36)
[2023-05-13] MEDS: POTASSIUM CHLORIDE IN WATER 10 MEQ/100 ML PIGGYBACK 100 MEQ IV ×4 (16:43→21:18)
--- NOTE | 2023-05-13 17:33 | DI.MRI.S_ITS ---
PROCEDURE: MR BRAIN (PITUITARY) O CON INDICATIONS: fever, handy, vision loss, vomiting, low sodium TECHNIQUE: Noncontrast sagittal and axial FLAIR, axial gradient echo, axial diffusion and ADC through the brain. Thin-slice sagittal and coronal T1 spin echo, coronal T2 fast spin echo through the pituitary. After the administration contrast, optional dynamic coronal T1 spin echo, thin-slice coronal and sagittal T1 spin echo images through the pituitary fossa; axial and coronal and sagittal T1 spin echo with fat saturation through the brain. COMPARISON: [facility], CT, CT HEAD/BRAIN WO CON, 05/13/2023, 16:13. FINDINGS: Image quality: Excellent. Pituitary Gland: A large pituitary mass is seen, measuring 3 cm craniocaudal by 2.4 cm AP, with a transverse extent of 2.2 cm. There is heterogeneity seen of this mass, particularly superiorly, with cystic elements as well as hemorrhage, with hemosiderin deposition and increased signal on precontrast T1 weighted imaging. There is mild hemorrhage seen, particularly along its margins and along the superior portion of the mass. This mass demonstrates a bilobed configuration, with a waist seen along its midportion. Mass effect can be seen upon the optic chiasm, which is flattened and superiorly elevated. There is also mass effect upon the ventral forebrain. CSF Spaces: Ventricles are normal in size and shape. Basal cisterns are patent. No extra-axial fluid collections. Brain: No intracranial bleeds or mass effects. No abnormal intracranial enhancement. Moseley-white matter interface is intact. Diffusion weighted images demonstrate no acute ischemic insults. Brainstem is normal. Normal intravascular flow voids are present. Skull and face: Calvarial marrow is normal in signal. Orbits appear normal. Sinuses: Sinuses and mastoids are clear. IMPRESSION: There is a 3 cm pituitary mass seen, with heterogeneity and internal hemorrhage. 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 Prominent mass effect is seen upon the optic chiasm, which is flattened and deviated superiorly. Urgent ENT/neurosurgical consultation is recommended. Note: Case discussed by telephone with Dr. Santiago at 6:35 p.m. [place] time on May 13, 2023. Dictated by: Edilson Adler M.D. on 05/13/2023 at 18:28 Approved by: Edilson Adler M.D. on 05/13/2023 at 18:36
[2023-05-13] MEDS: cefTRIAXone 2,000 MG in SODIUM CHLORIDE 0.9% 100 ML 200 MG IV (19:05)
[2023-05-13] MEDS: ACETAMINOPHEN IV 1,000 MG/100 ML VIAL 400 MG IV (19:14)
[2023-05-13] MEDS: HYDROCORTISONE 100 MG/2 ML VIAL INJ (19:29)
[2023-05-13] MEDS: WATER FOR INJECTION STERILE IV (19:33)
[2023-05-13] MEDS: SODIUM CHLORIDE IV (19:33)
[2023-05-13 19:47] LABS: BUN Creatinine Ratio 10.2 (6-22); Blood Urea Nitrogen 5 mg/dL (7-17); Calcium 7.8 mg/dL (8.4-10.2); Carbon Dioxide 29 mmol/L (22-32); Chloride 82 mmol/L (98-107); Estimated Glomerular Filt Rate > 60 mL/min (>60); Glucose 113 mg/dL (70-100); HEMOLYSIS < 15 (0-50)
[2023-05-13 19:55] LABS: Sodium 117 mmol/L (137-145)
[2023-05-13 21:43] LABS: BUN Creatinine Ratio 9.1 (6-22); Blood Urea Nitrogen 5 mg/dL (7-17); Calcium 7.6 mg/dL (8.4-10.2); Carbon Dioxide 27 mmol/L (22-32); Chloride 83 mmol/L (98-107); Estimated Glomerular Filt Rate > 60 mL/min (>60); Glucose 142 mg/dL (70-100); HEMOLYSIS < 15 (0-50); Potassium 3.1 mmol/L (3.4-5.1)
[2023-05-13 21:46] LABS: Sodium 117 mmol/L (137-145)
[2023-05-13] MEDS: VANCOMYCIN 1,250 MG/250 ML PIGGYBACK 250 MG IV (22:57)
[2023-05-13 23:35] LABS: Bacteria Urine None Seen; Culture Indicated Urine Cult Not Indicated; RBC Urine None Seen (0-5/HPF); Squamous Epithelial Cell Urine None Seen (0-5/HPF); WBC Urine None Seen (0-5/HPF)
--- NOTE | 2023-05-13 23:36 | PC.NURSE ---
Last BP 88/51 MAP of 65, provider aware, no new orders at this time.
== END 2023-05-14 00:15 | disposition short-term general hospital (02) ==
PROVIDERS: Emergency Medicine; Emergency Provider Emergency Medicine; PCP Nurse Practitioner Family
DX: E23.6 Other disorders of pituitary gland (principal); H54.7 Unspecified visual loss; R50.9 Fever, unspecified
CPT/HCPCS: 36415; 70450; 70553; 71045; 80048; 80053; 81003; 81015; 83605; 83690; 84145; 85025; 85610; 85730; 87040; 93005; 96361; 96365; 96367; 96368; 96375; 99285; 99291; A9579; J0131; J0696; J1720; J2270

== ENCOUNTER → 2023-06-05 11:25 | Outpatient (CLI) | payer OTHER, SELFPAY ==
[2023-06-05 12:09] LABS: Sodium 135 mmol/L (137-145)
== END ==
PROVIDERS: PCP Nurse Practitioner Family; Referring Provider Physician Assistant; Visit Provider Physician Assistant
DX: G96.00 Cerebrospinal fluid leak, unspecified (principal)
CPT/HCPCS: 36415; 84295

== ENCOUNTER → 2023-06-09 11:29 | Outpatient (CLI) | payer OTHER, SELFPAY ==
[2023-06-09 12:01] LABS: Sodium 143 mmol/L (137-145)
== END ==
PROVIDERS: PCP Nurse Practitioner Family; Referring Provider Physician Assistant; Visit Provider Physician Assistant
DX: G96.00 Cerebrospinal fluid leak, unspecified (principal)
CPT/HCPCS: 36415; 84295

== ENCOUNTER → 2024-11-10 08:14 | Outpatient (CLI) | payer OTHER, SELFPAY ==
--- NOTE | 2024-11-10 08:16 | DI.US.S_ITS ---
PROCEDURE: US ABDOMEN LIMITED INDICATIONS: ELEVATED LIVER ENZYMES TECHNIQUE: Real-time focused scanning was performed of the abdomen, with image documentation. COMPARISON: None. FINDINGS: The liver demonstrates normal size. The liver demonstrates generalized moderately increased echogenicity, with mild heterogeneity. This decreases ultrasound sensitivity for detection of hepatic masses. No findings of gallstones or sludge are seen. The gallbladder wall is not thickened, measuring 3 mm or less. No specific pericholecystic fluid is seen. The sonographic Mckenna sign is negative. There is no biliary dilatation, the common hepatic duct measures 2 mm. No significant pancreatic abnormality is seen on these images. IMPRESSION: The liver demonstrates increased echogenicity. This finding is nonspecific, yet it is most commonly attributed to fatty infiltration. Dictated by: Edilson Adler M.D. on 11/10/2024 at 9:50 Approved by: Edilson Adler M.D. on 11/10/2024 at 9:50
== END ==
PROVIDERS: Family Provider Nurse Practitioner Family; PCP Nurse Practitioner Family; Referring Provider Nurse Practitioner Family; Visit Provider Nurse Practitioner Family
DX: R74.8 Abnormal levels of other serum enzymes (principal)
CPT/HCPCS: 76705

== ENCOUNTER 2024-11-10 10:56 | Outpatient (RCR) | payer OTHER, SELFPAY ==
--- NOTE | 2024-11-10 12:07 | OT.OP.TRT ---
Visit Care Team Role Provider Type IVY [place] Attending Provider Non-Staff Family Provider Primary Care Provider Referring Provider Specialty: Nursing Address: [address] [place] [address], [place], [address] Email: Alayna was referred to outpatient OT for need for assist w/ personal care. Medical history was significant for arthritis, back pain, dizziness, falls, thyroid disorder, TBI/concussion, memory loss, removal of brain tumor, pituitary gland surgery/pituitary gland removal d/t presence of tumor, and vision impairment. 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 [employer] UE Outcome Measure Score = 50.00; 5 out of 10 pain relative to volar surface of bilateral knees and 6 out of 10 relative to medial/mid back between scapulae. Alayna reports independence w/ self-care, including bathing without need for AE. She has made adjustments to her self care routine based on balance concerns; for example, she sits on the toilet to don her socks vs while in standing. She does not have any difficulties w/ self care manipulatives, such as earrings, or zippers. She ambulates without mobility AE and frequently holds onto her cane loader. She does not drive; she does do some house cleaning, such as washing dishes. Given findings and information collected from Alayna and her cane loader, her primary concerns are balance, word finding, and memory. Thus, she would likely benefit from outpatient PT and MATERIAL HANDLING TECHNICIAN referrals. These recommendations were made to Alayna and cane loader; thus, recommend d/c outpatient OT at this time and re-evaluate as deemed appropriate by PCP w/ receipt of new referral.
== END 2024-11-15 09:44 | disposition home or self-care (01) ==
LOC: OT 10:56
PROVIDERS: Family Provider Nurse Practitioner Family; PCP Nurse Practitioner Family; Referring Provider Nurse Practitioner Family; Visit Provider Nurse Practitioner Family
DX: Z74.1 Need for assistance with personal care (principal)

== ENCOUNTER 2025-02-23 11:50 | Day surgery (SDC) | payer OTHER, SELFPAY ==
[2025-02-23 12:27] VITALS: BP 101/68; PULSE 64; RESP 16; TEMP 36.8; O2SAT 98
[2025-02-23] MEDS: LACTATED RINGERS 1,000 ML 42 ML IV (12:33)
--- NOTE | 2025-02-23 13:10 | P.HP_ITS ---
History of Present Illness History of Present Illness Chief complaint: Colonoscopy Narrative: Ten year screening colonoscopy [facility] Medical History (Updated 02/22/25 @ 15:10 by Lolly Nielson RN) Hypothyroid Social History Smoking Status: Never smoker alcohol intake: never Meds Home Medications and Allergies Home Medications Medication Instructions Recorded Confirmed Type sodium,potassium,mag sulfates 17.5 See Rx Instructions PO .COMPLEX 01/20/25 Rx gram-3.13 gram-1.6 gram oral soln #354 mL (Suprep Bowel Prep Kit) atorvastatin 20 mg tablet 20 mg PO DAILY 02/22/25 02/23/25 History desmopressin 10 mcg/spray (0.1 mL) 2 spray intranasal 02/22/25 History nasal spray (non-refrigerated) hydrocortisone 5 mg tablet (Cortef) 10 mg PO BID 02/22/25 02/23/25 History latanoprost 0.005 % eye drops 1 drp EYE-BOTH 02/22/25 History levothyroxine 50 mcg tablet 50 mcg PO DAILY 02/22/25 02/23/25 History Allergies Allergy/AdvReac Type Severity Reaction Status Date / Time No Known Drug Allergies Allergy Verified 05/13/23 15:35 Exam Vital Signs (past 8 hours): - 02/23/25 12:27 Temperature 98.3 F Pulse Rate 64 Respiratory Rate 16 Blood Pressure 101/68 Pulse Oximetry 98 Oxygen Delivery Method Room Air Oxygen Delivery Method Room Air Narrative Exam Narrative: Oropharynx free of lesions Chest clear to auscultation percussion Cardiac exam reveals no S3 or murmur Assessment & Plan Assessment & Plan narrative: Ten year screening colonoscopy. Risks, benefits, alternatives have been explained. Time-Based Coding :: [TOTAL MINUTES] spent with patient and on the chart (including review of chart, obtaining history, exam, reviewing outside data, placing orders, documenting exam and treatment plan, and counseling patient) on [DATE]. 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
--- NOTE | 2025-02-23 13:23 | PM.OP.COLON ---
Operative Date/Time/Diagnoses Date of procedure: 02/23/25 Time of procedure: 13:37 Pre-op diagnosis: See indication and findings Post-op diagnosis: same Procedure & Clinicians Study performed: Colonoscopy Same procedure as scheduled: Yes Indications: Ten year screening colonoscopy Surgeon: Lincoln Macedo Procedure Notes Procedure in detail: After informed consent was obtained the patient was placed in left lateral decubitus position. The video colonoscope was introduced the rectum slowly advanced cecum. Preparation was good. On slow withdrawal mucosa was carefully examined. The scope was removed. The patient tolerated procedure well. Blood loss none Complications none Sedation mac Findings 1. Normal colonoscopy to cecum Patient should have follow-up colonoscopy in 10 years
--- NOTE | 2025-02-23 13:30 | SUR.OPER ---
CECUM AT 1330
[2025-02-23 13:39] VITALS: BP 100/67; PULSE 76; RESP 16; TEMP 36.3; O2SAT 95
[2025-02-23 13:45] VITALS: BP 99/66; PULSE 74; RESP 15; O2SAT 95
[2025-02-23 13:50] VITALS: BP 93/63; PULSE 75; RESP 16; TEMP 36.3; O2SAT 95
[2025-02-23 14:00] VITALS: BP 107/73; PULSE 75; RESP 14; O2SAT 97
== END 2025-02-23 14:09 | disposition home or self-care (01) ==
PROVIDERS: Family Provider Nurse Practitioner Family; PCP Nurse Practitioner Family; Referring Provider Internal Medicine Gastroenterology; Visit Provider Internal Medicine Gastroenterology
PROC: 0DJD8ZZ Inspection of Lower Intestinal Tract, Via Natural or Artificial Opening Endoscopic (ICD-10-PCS; CPT 45378; principal; 2025-02-23 13:00)
DX: Z12.11 Encounter for screening for malignant neoplasm of colon (principal)
CPT/HCPCS: 45378; J1100; J2704